=== PATIENT | female | born 1980 | race Caucasian/White ===

== ENCOUNTER 2016-11-30 11:25 | Emergency (ER) | payer OTHER ==
[2016-11-30 11:31] VITALS: PULSE 82; TEMP 98.1; BMI 21.9
--- NOTE | 2016-11-30 11:41 | PDOC ---
History of Present Illness - General History Source: Patient Exam Limitations: No Limitations - History of Present Illness Initial Comments: 11/30/16 12:01 The patient is a 35 year old female with no significant past medical history, presenting to the Emergency Department with headache for 3 weeks. The patient states that 3 weeks ago she fell forward and hit her head on the corner of a table. Patient denies loss of consciousness. She admits going to the hospital after the injury, and was examined and discharged. The patient states that she has recently been tired, nauseous, and not feeling herself. She describes a headache that is pressure at the back of her head and a sharp pain at the left side of her head. Patient states that she may be . The patient denies double vision, or blurry vision. Patient denies vomiting, or diarrhea. Patient denies chest pain, palpitations, and shortness of breath. Patient denies neck pain or back pain. Social Hx: everyday cigarette smoker <Leta Alonzo - Last Filed: 11/30/16 13:08> <Nicole Palumbo - Last Filed: 11/30/16 13:24> - General Chief Complaint: Lightheaded Stated Complaint: HEAD INJURY Time Seen by Provider: 11/30/16 11:41 Past History <Leta Alonzo - Last Filed: 11/30/16 13:08> - Past Medical History HTN: No (TOLD BP WAS HIGH IN THE PAST) Other medical history: NONE - Psycho/Social/Smoking Cessation Hx Anxiety: No Suicidal Ideation: No Smoking History: Current every day smoker Number of Cigarettes Smoked Daily: 3 Information on smoking cessation initiated: Yes 'Breaking Loose' booklet given: 11/30/16 Hx Alcohol Use: Yes (SOCIAL) Drug/Substance Use Hx: No Substance Use Type: None <Nicole Palumbo - Last Filed: 11/30/16 13:24> - Past Medical History Allergies/Adverse Reactions: Allergies Allergy/AdvReac Type Severity Reaction Status Date / Time No Known Allergies Allergy Verified 11/30/16 11:31 Review of Systems - Review of Systems Able to Perform ROS?: Yes Comments:: 11/30/16 12:02 CONSTITUTIONAL: Present: + tired Absent: fever, no chills, no fatigue EYES: Absent: visual changes ENT: Absent: ear pain, no sore throat CARDIOVASCULAR: Absent: chest pain, no palpitations RESPIRATORY: Absent: cough, no SOB GI: Present: + nausea Absent: abdominal pain, no vomiting, no constipation, no diarrhea GENITOURINARY: Absent: dysuria, no frequency, no hematuria MUSCULOSKELETAL: Absent: back pain, no arthralgia, no myalgia SKIN: Absent: rash NEURO: Present: + headache Absent: visual changes <Leta Alonzo - Last Filed: 11/30/16 13:08> *Physical Exam - Vital Signs Last Vital Signs Temp Pulse Resp BP Pulse Ox 98.1 F 82 20 158/113 97 11/30/16 11:28 11/30/16 11:28 11/30/16 11:28 11/30/16 11:28 11/30/16 11:28 - Physical Exam Comments: GENERAL: Well developed, well nourished. Awake and alert. No acute distress. HEENT: Normocephalic, atraumatic. PERRLA, EOMI. No conjunctival pallor. Sclera are non- icteric. Moist mucous membranes. Oropharynx is clear. NECK: Supple. Full ROM. No JVD. Carotid pulses 2+ and symmetric, without bruits. No thyromegaly. No lymphadenopathy. CARDIOVASCULAR: Regular rate and rhythm. No murmurs, rubs, or gallops. Distal pulses are 2+ and symmetric. PULMONARY: No evidence of respiratory distress. Lungs clear to auscultation bilaterally. No wheezing, rales or rhonchi. ABDOMINAL: Small soft reducible umbilical hernia. Soft. Non-distended. No rebound or guarding. No organomegaly. Normoactive bowel sounds. MUSCULOSKELETAL Normal range of motion at all joints. No bony deformities or tenderness. No CVA tenderness. EXTREMITIES: No cyanosis. No clubbing. No edema. No calf tenderness. SKIN: Warm and dry. Normal capillary refill. No rashes. No jaundice. NEUROLOGICAL: Alert, awake, appropriate. Cranial nerves 2-12 intact. No deficits to light touch in face, upper extremities and lower extremities. No motor deficits in the in face, upper extremities and lower extremities. Normal speech. Toes are down-going bilaterally. Brudzinski sign negative. Normal heel to pappas PSYCHIATRIC: Cooperative. Good eye contact. Appropriate mood and affect. <Leta Alonzo - Last Filed: 11/30/16 13:08> - Vital Signs Last Vital Signs Temp Pulse Resp BP Pulse Ox 98.1 F 82 20 158/113 97 11/30/16 11:28 11/30/16 11:28 11/30/16 11:28 11/30/16 11:28 11/30/16 11:28 <Nicole Palumbo - Last Filed: 11/30/16 13:24> ED Treatment Course - RADIOLOGY Radiograph Interpretation: 11/30/16 13:[address]: As reviewed by Dr. Darrin Edge IMPRESSION: No evidence of a focal intracranial lesion or hemorrhage is seen. <Leta Alonzo - Last Filed: 11/30/16 13:08> Medical Decision Making - Medical Decision Making 11/30/16 13:21 Pt presents to the ED complaining of a three week history of headache after bumping her head. Also complaining of dizziness and nausea. Symptoms are most consistent with concussion, but patient insisted on CT head, despite a lengthy explaination of the risks and benefits of CT. CT is negative. Will discharge home. <Nicole Palumbo - Last Filed: 11/30/16 13:24> *DC/Admit/Observation/Transfer - Attestations Scribe Attestion: 11/30/16 12:04 Documentation prepared by Leta Alonzo, acting as medical device sales representative for Nicole Palumbo MD. <Leta Alonzo - Last Filed: 11/30/16 13:08> - Discharge Dispostion Admit: No <Nicole Palumbo - Last Filed: 11/30/16 13:24> Diagnosis at time of Disposition: Concussion Qualifiers: Encounter type: subsequent encounter - Discharge Dispostion Disposition: HOME Condition at time of disposition: Good - Patient Instructions Printed Discharge Instructions: DI for Concussion
[2016-11-30 14:12] VITALS: BP 147/90
== END 2016-11-30 14:13 | disposition home or self-care (01) ==
LOC: JER 11:25
DX: S06.0X0A Concussion without loss of consciousness, initial encounter (principal); G44.319 Acute post-traumatic headache, not intractable; W01.190A Fall on same level from slipping, tripping and stumbling with subsequent striking against furniture, initial encounter; Y92.038 Other place in apartment as the place of occurrence of the external cause
CPT/HCPCS: 70450-TC; 84703; 99282-25